=== PATIENT | male | born 1965 | race Caucasian/White ===

== ENCOUNTER 2022-08-11 01:56 | Inpatient (IN) | payer MEDICAID ==
[~2022-08-11] VITALS: Ht 172.7 cm; Wt 117.9 kg
[2022-08-11 03:52] LABS: CHLORIDE 100 mEq/L (98-107)
[2022-08-11 03:54] LABS: BASOPHILS % 0.5 % (0.0-2.0); EOSINOPHILS % 0.1 % (0.0-5.0); HEMATOCRIT. 44.7 % (42.0-52.0); HEMOGLOBIN. 15.1 g/dL (14.0-18.0); MEAN CORPUSCULAR HEMOGLOBIN 30.3 pg (28.0-32.0); MEAN CORPUSCULAR VOLUME 89.6 fL (80.0-94.0); MEAN PLATELET VOLUME 9.5 fl (7.4-10.4); MONOCYTES % 6.2 % (2.0-8.0); NEUTROPHILS % 74.2 % (40.0-76.0); PLATELET 228 x1000/uL (130-400); PROTHROMBIN TIME 10.9 sec (9.6-11.0); RED BLOOD CELL COUNT 4.99 mill/uL (4.7-6.1); RED CELL DISTRIBUTION WIDTH 13.4 % (11.6-14.6)
[2022-08-11] MEDS ORDERED: SODIUM CHLORIDE 0.9% 1,000 ML IV ONE (04:15)
[2022-08-11] MEDS ORDERED: MORPHINE SULFATE 4 MG/ML CPJ (NOT FOR IM USE) IV ONE (04:15)
[2022-08-11 10:00] VITALS: BP 180/99
[2022-08-11] MEDS ORDERED: ONDANSETRON HCL 4MG/2ML INJ IV PRN (10:15)
[2022-08-11] MEDS ORDERED: MORPHINE SULFATE 4 MG/ML CPJ (NOT FOR IM USE) IV PRN (10:15)
[2022-08-11] MEDS ORDERED: DEXTROSE 50% WATER 50ML SYRINGE IV PRN (10:15)
[2022-08-11] MEDS ORDERED: CLONIDINE 0.1MG TABLET PO PRN (10:15)
[2022-08-11] MEDS ORDERED: DIPHENHYDRAMINE 50MG/ML VIAL IV PRN (10:15)
[2022-08-11] MEDS ORDERED: NALOXONE HCL 0.4MG/ML VIAL IV PRN ×2 (10:30)
[2022-08-11] MEDS ORDERED: SODIUM CHLORIDE 0.9% 1,000 ML IV SCH (10:30)
[2022-08-11] MEDS: PANTOPRAZOLE SODIUM 40 MG/VIAL IV SCH (12:03)
[2022-08-11] MEDS: BLOOD SUGAR DIAGNOSTIC STRIP TEST SCH ×3 (12:20→21:40)
[2022-08-11] MEDS ORDERED: MORPHINE SULFATE 4 MG/ML CPJ (NOT FOR IM USE) IV NR (13:45)
[2022-08-11] MEDS: LISINOPRIL 20MG TABLET PO SCH ×2 (13:59→21:40)
[2022-08-11] MEDS: INSULIN LISPRO 100 UNITS/ML SUBCUT SCH ×3 (14:07→21:47)
[2022-08-11] MEDS: SODIUM CHLORIDE 0.9% 1,000 ML IV SCH (14:36)
[2022-08-11] MEDS ORDERED: CLONIDINE 0.2MG TABLET PO PRN (14:45)
[2022-08-11 16:00] VITALS: BP 178/92
[2022-08-11] MEDS: MORPHINE SULFATE 4 MG/ML CPJ (NOT FOR IM USE) IV PRN ×2 (17:24→21:40)
[2022-08-11] MEDS: ENOXAPARIN 30MG/0.3ML SYR SUBCUT SCH (18:00)
[2022-08-11 20:00] VITALS: BP_SYST 106; BP_SYST 166; BP_DIAS 73; BP_DIAS 94
[2022-08-12] VITALS: BP 156/86
[2022-08-12 04:00] VITALS: BP 167/85
[2022-08-12] MEDS: ENOXAPARIN 30MG/0.3ML SYR SUBCUT SCH ×2 (05:58→18:00)
[2022-08-12] MEDS ORDERED: VANCOMYCIN HCL 1 GM/VIAL ONE ×2 (06:22→09:07)
[2022-08-12] MEDS ORDERED: BUPIVACAINE HCL/PF 0.5% (5MG/ML) 30ML ONE (06:22)
[2022-08-12] MEDS: BLOOD SUGAR DIAGNOSTIC STRIP TEST SCH ×4 (06:24→21:00)
[2022-08-12] MEDS ORDERED: BUPIVACAINE HCL/PF 0.5% (5MG/ML) 10ML ONE (06:43)
[2022-08-12 06:44] LABS: BASOPHILS % 0.4 % (0.0-2.0); EOSINOPHILS % 0.4 % (0.0-5.0); HEMATOCRIT. 38.7 % (42.0-52.0); HEMOGLOBIN. 13.5 g/dL (14.0-18.0); LYMPHOCYTES % 21.3 % (20.0-50.0); MEAN CORPUSCULAR HEMOGLOBIN 31.2 pg (28.0-32.0); MEAN CORPUSCULAR VOLUME 89.3 fL (80.0-94.0); MEAN PLATELET VOLUME 9.8 fl (7.4-10.4); NEUTROPHILS % 68.9 % (40.0-76.0); PLATELET 163 x1000/uL (130-400); RED BLOOD CELL COUNT 4.33 mill/uL (4.7-6.1); RED CELL DISTRIBUTION WIDTH 13.2 % (11.6-14.6)
[2022-08-12 07:18] LABS: CHLORIDE 104 mEq/L (98-107)
[2022-08-12] MEDS ORDERED: PROPOFOL 200MG/20ML VIAL IV ONE (07:22)
[2022-08-12] MEDS ORDERED: LIDOCAINE 2% 6ML GLYDO MM ONE (07:23)
[2022-08-12] MEDS ORDERED: CEFAZOLIN SODIUM 1000MG/VIAL ONE (07:23)
[2022-08-12] MEDS ORDERED: SUCCINYLCHOLINE CHLORIDE 200MG/10ML IV ONE (07:23)
[2022-08-12 07:24] LABS: HEPATITIS B SURFACE ANTIGEN NEGATIVE
[2022-08-12] MEDS ORDERED: LIDOCAINE HCL 1% 20ML VIAL (Pyxis) INJ ONE (07:26)
[2022-08-12] MEDS ORDERED: MIDAZOLAM HCL 2 MG/2 ML VIAL ONE (07:28)
[2022-08-12] MEDS ORDERED: FENTANYL CITRATE/PF 50MCG/ML 2ML VIAL ONE (07:32)
[2022-08-12] MEDS ORDERED: HYDROMORPHONE HCL/PF 2MG/ML CPJ IV PRN (07:45)
[2022-08-12] MEDS ORDERED: FENTANYL CITRATE/PF 50MCG/ML 2ML VIAL IV PRN (07:45)
[2022-08-12] MEDS ORDERED: HYDROMORPHONE HCL/PF 2MG/ML CPJ ONE (07:58)
[2022-08-12 08:00] VITALS: BP 102/59
[2022-08-12] MEDS: PANTOPRAZOLE SODIUM 40 MG/VIAL IV SCH (09:00)
[2022-08-12] MEDS: LISINOPRIL 20MG TABLET PO SCH ×2 (09:00→20:49)
[2022-08-12] MEDS ORDERED: ALBUMIN HUMAN 12.5G/250ML (5%) IV NR (09:50)
[2022-08-12] MEDS: SODIUM CHLORIDE 0.9% 1,000 ML IV SCH (10:36)
[2022-08-12 12:00] VITALS: BP 149/84
[2022-08-12] MEDS: MORPHINE SULFATE 4 MG/ML CPJ (NOT FOR IM USE) IV PRN ×2 (13:47→18:19)
[2022-08-12] MEDS: INSULIN LISPRO 100 UNITS/ML SUBCUT SCH ×3 (15:12→21:11)
[2022-08-12 16:01] VITALS: BP 146/82
[2022-08-12] MEDS: CEFAZOLIN 2,000 MG in DEXT 5% WATER 100 ML IV SCH (18:10)
[2022-08-12 20:00] VITALS: BP 127/67
[2022-08-13] VITALS: BP 107/54
[2022-08-13] MEDS: MORPHINE SULFATE 4 MG/ML CPJ (NOT FOR IM USE) IV PRN ×3 (00:04→17:21)
[2022-08-13] MEDS: CEFAZOLIN 2,000 MG in DEXT 5% WATER 100 ML IV SCH ×3 (01:18→17:13)
[2022-08-13 04:00] VITALS: BP 164/71
[2022-08-13] MEDS: ENOXAPARIN 30MG/0.3ML SYR SUBCUT SCH ×2 (05:35→17:15)
[2022-08-13] MEDS: SODIUM CHLORIDE 0.9% 1,000 ML IV SCH (05:36)
[2022-08-13] MEDS: BLOOD SUGAR DIAGNOSTIC STRIP TEST SCH ×4 (07:12→21:00)
[2022-08-13 08:00] VITALS: BP 108/57
[2022-08-13] MEDS: PANTOPRAZOLE SODIUM 40 MG/VIAL IV SCH (08:19)
[2022-08-13] MEDS: LISINOPRIL 20MG TABLET PO SCH ×2 (09:00→22:04)
[2022-08-13] MEDS ORDERED: MAGNESIUM/ALUMINUM HYDROXIDE/SIMETHICONE 30ML UDC PO PRN (10:45)
[2022-08-13] MEDS ORDERED: MAGNESIUM HYDROXIDE 400MG/5ML 30ML UDC PO PRN (10:45)
[2022-08-13] MEDS ORDERED: NALOXONE HCL 0.4MG/ML VIAL IV PRN (11:15)
[2022-08-13] MEDS: HYDROCODONE/ACETAMINOPHEN 10/325MG TABLET PO PRN (11:16)
[2022-08-13 12:00] VITALS: BP 163/61
[2022-08-13] MEDS: INSULIN LISPRO 100 UNITS/ML SUBCUT SCH ×3 (12:50→22:07)
[2022-08-13] MEDS: METFORMIN HCL 500MG TABLET PO SCH ×2 (13:21→17:13)
[2022-08-13] MEDS: DOCUSATE SODIUM 100MG CAPSULE PO SCH ×2 (13:22→17:13)
[2022-08-13] MEDS: PANTOPRAZOLE 40MG DR TABLET PO SCH ×2 (13:22→22:03)
[2022-08-13 16:00] VITALS: BP 127/61
[2022-08-13 20:00] VITALS: BP 145/70
[2022-08-13] MEDS ORDERED: SENNOSIDES 8.6MG TABLET PO PRN (21:00)
[2022-08-13] MEDS ORDERED: INSULIN GLARGINE 100 UNITS/ML SUBCUT SCH (22:00)
[2022-08-14] VITALS: BP 136/72
[2022-08-14] MEDS: MORPHINE SULFATE 4 MG/ML CPJ (NOT FOR IM USE) IV PRN ×4 (01:05→21:43)
[2022-08-14] MEDS: CEFAZOLIN 2,000 MG in DEXT 5% WATER 100 ML IV SCH ×3 (01:06→17:49)
[2022-08-14 04:00] VITALS: BP 154/84
[2022-08-14] MEDS: ENOXAPARIN 30MG/0.3ML SYR SUBCUT SCH ×2 (06:28→17:49)
[2022-08-14] MEDS: PANTOPRAZOLE 40MG DR TABLET PO SCH ×2 (06:28→21:20)
[2022-08-14 06:55] LABS: BASOPHILS % 0.5 % (0.0-2.0); EOSINOPHILS % 0.3 % (0.0-5.0); HEMATOCRIT. 28.7 % (42.0-52.0); HEMOGLOBIN. 9.9 g/dL (14.0-18.0); LYMPHOCYTES % 15.5 % (20.0-50.0); MEAN CORPUSCULAR HEMOGLOBIN 31.6 pg (28.0-32.0); MEAN CORPUSCULAR VOLUME 91.3 fL (80.0-94.0); MEAN PLATELET VOLUME 9.2 fl (7.4-10.4); MONOCYTES % 9.7 % (2.0-8.0); PLATELET 152 x1000/uL (130-400); RED BLOOD CELL COUNT 3.14 mill/uL (4.7-6.1)
[2022-08-14 07:33] LABS: CHLORIDE 107 mEq/L (98-107)
[2022-08-14 08:00] VITALS: BP 165/69
[2022-08-14] MEDS: BLOOD SUGAR DIAGNOSTIC STRIP TEST SCH ×4 (08:11→21:00)
[2022-08-14] MEDS: LISINOPRIL 20MG TABLET PO SCH ×2 (08:29→21:20)
[2022-08-14] MEDS: DOCUSATE SODIUM 100MG CAPSULE PO SCH ×2 (08:30→17:49)
[2022-08-14] MEDS: INSULIN LISPRO 100 UNITS/ML SUBCUT SCH ×4 (08:32→21:26)
[2022-08-14] MEDS: METFORMIN HCL 500MG TABLET PO SCH ×2 (08:35→17:49)
[2022-08-14] MEDS: HYDROCODONE/ACETAMINOPHEN 10/325MG TABLET PO PRN ×3 (08:36→17:55)
[2022-08-14 12:00] VITALS: BP 149/81
[2022-08-14] MEDS: SENNOSIDES 8.6MG TABLET PO SCH ×3 (14:30→21:20)
[2022-08-14] MEDS ORDERED: LACTULOSE 20G/30ML UDC PO PRN (14:30)
[2022-08-14 16:00] VITALS: BP 164/73
[2022-08-14 20:00] VITALS: BP 130/72
[2022-08-14] MEDS: AMLODIPINE 5MG TABLET PO SCH (21:21)
[2022-08-14] MEDS: INSULIN GLARGINE 100 UNITS/ML SUBCUT SCH (21:25)
[2022-08-15] VITALS: BP 155/73
[2022-08-15 04:00] VITALS: BP 140/71
[2022-08-15] MEDS: HYDROCODONE/ACETAMINOPHEN 10/325MG TABLET PO PRN ×4 (04:33→23:06)
[2022-08-15] MEDS: ENOXAPARIN 30MG/0.3ML SYR SUBCUT SCH ×2 (06:36→18:00)
[2022-08-15] MEDS: PANTOPRAZOLE 40MG DR TABLET PO SCH ×2 (06:36→21:41)
[2022-08-15] MEDS: BLOOD SUGAR DIAGNOSTIC STRIP TEST SCH ×4 (06:36→21:00)
[2022-08-15] MEDS: INSULIN LISPRO 100 UNITS/ML SUBCUT SCH ×4 (07:01→21:43)
[2022-08-15 08:00] VITALS: BP 141/78
[2022-08-15] MEDS: METFORMIN HCL 500MG TABLET PO SCH ×2 (09:25→17:50)
[2022-08-15] MEDS: DOCUSATE SODIUM 100MG CAPSULE PO SCH ×2 (09:25→17:00)
[2022-08-15] MEDS: AMLODIPINE 5MG TABLET PO SCH ×2 (09:26→21:42)
[2022-08-15] MEDS: LISINOPRIL 20MG TABLET PO SCH ×2 (09:26→21:41)
[2022-08-15] MEDS: MORPHINE SULFATE 4 MG/ML CPJ (NOT FOR IM USE) IV PRN (09:37)
[2022-08-15 12:00] VITALS: BP 139/79
[2022-08-15 16:00] VITALS: BP 151/74
[2022-08-15 20:00] VITALS: BP 131/71
[2022-08-15] MEDS: SENNOSIDES 8.6MG TABLET PO SCH (21:00)
[2022-08-15] MEDS: INSULIN GLARGINE 100 UNITS/ML SUBCUT SCH (21:44)
[2022-08-16 04:00] VITALS: BP 169/94
[2022-08-16] MEDS: ENOXAPARIN 30MG/0.3ML SYR SUBCUT SCH ×2 (06:00→19:41)
[2022-08-16] MEDS: MORPHINE SULFATE 4 MG/ML CPJ (NOT FOR IM USE) IV PRN (06:12)
[2022-08-16 07:15] LABS: HEMATOCRIT 27.6 % (42.0-52.0); HEMOGLOBIN 9.7 g/dL (14.0-18.0); MEAN CORPUSCULAR HEMOGLOBIN 31.7 pg (28.0-32.0); MEAN CORPUSCULAR VOLUME 90.6 fL (80.0-94.0); PLATELET 193 x1000/uL (130-400); RED BLOOD CELL COUNT 3.05 mill/uL (4.7-6.1); RED CELL DISTRIBUTION WIDTH 12.8 % (11.6-14.6)
[2022-08-16] MEDS: BLOOD SUGAR DIAGNOSTIC STRIP TEST SCH ×4 (07:58→21:05)
[2022-08-16 08:00] VITALS: BP 146/77
[2022-08-16] MEDS: PANTOPRAZOLE 40MG DR TABLET PO SCH ×2 (08:43→20:18)
[2022-08-16] MEDS: METFORMIN HCL 500MG TABLET PO SCH ×2 (08:43→19:40)
[2022-08-16] MEDS: LISINOPRIL 20MG TABLET PO SCH ×2 (08:44→20:18)
[2022-08-16] MEDS: HYDROCODONE/ACETAMINOPHEN 10/325MG TABLET PO PRN ×2 (08:45→16:54)
[2022-08-16] MEDS: INSULIN LISPRO 100 UNITS/ML SUBCUT SCH ×4 (08:50→21:04)
[2022-08-16] MEDS: DOCUSATE SODIUM 100MG CAPSULE PO SCH ×2 (09:00→17:00)
[2022-08-16] MEDS ORDERED: OXYCODONE HCL/ACETAMINOPHEN 5/325MG TABLET PO PRN (09:15)
[2022-08-16 11:57] VITALS: BP 142/83
[2022-08-16] MEDS: AMLODIPINE 5MG TABLET PO SCH ×2 (12:24→20:19)
[2022-08-16 15:50] VITALS: BP 119/64
[2022-08-16 20:00] VITALS: BP 142/77
[2022-08-16] MEDS: SENNOSIDES 8.6MG TABLET PO SCH (20:18)
[2022-08-16] MEDS: INSULIN GLARGINE 100 UNITS/ML SUBCUT SCH (21:05)
[2022-08-17] VITALS: BP 140/76
[2022-08-17] MEDS: HYDROCODONE/ACETAMINOPHEN 10/325MG TABLET PO PRN ×4 (00:30→22:23)
[2022-08-17 04:00] VITALS: BP 142/70
[2022-08-17] MEDS: ENOXAPARIN 30MG/0.3ML SYR SUBCUT SCH ×2 (05:28→18:37)
[2022-08-17] MEDS: PANTOPRAZOLE 40MG DR TABLET PO SCH ×2 (06:35→22:23)
[2022-08-17] MEDS: BLOOD SUGAR DIAGNOSTIC STRIP TEST SCH ×4 (07:20→21:00)
[2022-08-17 08:00] VITALS: BP 119/80
[2022-08-17] MEDS ORDERED: OXYCODONE HCL/ACETAMINOPHEN 5/325MG TABLET PO PRN ×2 (09:30→15:45)
[2022-08-17] MEDS: INSULIN LISPRO 100 UNITS/ML SUBCUT SCH ×4 (11:25→22:20)
[2022-08-17] MEDS: METFORMIN HCL 500MG TABLET PO SCH ×2 (11:26→18:36)
[2022-08-17] MEDS: AMLODIPINE 5MG TABLET PO SCH ×2 (11:27→22:21)
[2022-08-17] MEDS: DOCUSATE SODIUM 100MG CAPSULE PO SCH ×2 (11:27→18:37)
[2022-08-17] MEDS: LISINOPRIL 20MG TABLET PO SCH ×2 (11:27→22:21)
[2022-08-17 12:00] VITALS: BP 168/83
[2022-08-17 16:00] VITALS: BP 156/75
[2022-08-17 20:00] VITALS: BP 156/81
[2022-08-17] MEDS: INSULIN GLARGINE 100 UNITS/ML SUBCUT SCH (22:19)
[2022-08-17] MEDS: SENNOSIDES 8.6MG TABLET PO SCH (22:23)
[2022-08-17] MEDS: GABAPENTIN 100MG CAPSULE PO SCH (22:24)
[2022-08-18] VITALS: BP 145/71
[2022-08-18 04:00] VITALS: BP 151/84
[2022-08-18] MEDS: HYDROCODONE/ACETAMINOPHEN 10/325MG TABLET PO PRN ×4 (04:18→18:37)
[2022-08-18] MEDS: ENOXAPARIN 30MG/0.3ML SYR SUBCUT SCH ×2 (06:29→19:02)
[2022-08-18] MEDS: PANTOPRAZOLE 40MG DR TABLET PO SCH ×2 (06:30→22:09)
[2022-08-18] MEDS: GABAPENTIN 100MG CAPSULE PO SCH ×3 (06:30→22:09)
[2022-08-18] MEDS: BLOOD SUGAR DIAGNOSTIC STRIP TEST SCH ×4 (07:20→21:00)
[2022-08-18 08:00] VITALS: BP 166/82
[2022-08-18] MEDS: METFORMIN HCL 500MG TABLET PO SCH ×2 (09:29→18:38)
[2022-08-18] MEDS: LISINOPRIL 20MG TABLET PO SCH ×2 (09:30→22:09)
[2022-08-18] MEDS: DOCUSATE SODIUM 100MG CAPSULE PO SCH ×2 (09:31→18:36)
[2022-08-18] MEDS: AMLODIPINE 5MG TABLET PO SCH ×2 (09:31→22:10)
[2022-08-18] MEDS: INSULIN LISPRO 100 UNITS/ML SUBCUT SCH ×4 (09:39→22:19)
[2022-08-18 12:00] VITALS: BP 141/78
[2022-08-18 16:00] VITALS: BP 146/81
[2022-08-18 20:00] VITALS: BP 137/72
[2022-08-18] MEDS: SENNOSIDES 8.6MG TABLET PO SCH (22:10)
[2022-08-18] MEDS: INSULIN GLARGINE 100 UNITS/ML SUBCUT SCH (22:20)
[2022-08-19] VITALS: BP 133/74
[2022-08-19] MEDS: HYDROCODONE/ACETAMINOPHEN 10/325MG TABLET PO PRN ×4 (00:10→22:07)
[2022-08-19 04:00] VITALS: BP_SYST 133; BP_SYST 141; BP_DIAS 69; BP_DIAS 81
[2022-08-19] MEDS: PANTOPRAZOLE 40MG DR TABLET PO SCH ×2 (06:44→21:11)
[2022-08-19] MEDS: GABAPENTIN 100MG CAPSULE PO SCH ×3 (06:44→21:11)
[2022-08-19] MEDS: BLOOD SUGAR DIAGNOSTIC STRIP TEST SCH ×4 (06:45→21:20)
[2022-08-19] MEDS: ENOXAPARIN 30MG/0.3ML SYR SUBCUT SCH ×2 (06:45→17:45)
[2022-08-19 07:13] LABS: TOTAL IRON BINDING CAPACITY 253 ug/dL (250-450)
[2022-08-19 07:16] LABS: FERRITIN 55 ng/mL (22-322)
[2022-08-19 07:28] LABS: VITAMIN B12 SERUM 696 pg/mL (211-911)
[2022-08-19 08:00] VITALS: BP 143/72
[2022-08-19] MEDS: DOCUSATE SODIUM 100MG CAPSULE PO SCH ×2 (08:36→17:44)
[2022-08-19] MEDS: METFORMIN HCL 500MG TABLET PO SCH ×2 (08:38→17:51)
[2022-08-19] MEDS: LISINOPRIL 20MG TABLET PO SCH ×2 (08:38→21:11)
[2022-08-19] MEDS: AMLODIPINE 5MG TABLET PO SCH ×2 (08:39→21:11)
[2022-08-19] MEDS: INSULIN LISPRO 100 UNITS/ML SUBCUT SCH ×4 (08:41→21:19)
[2022-08-19 12:26] VITALS: BP 131/63
[2022-08-19] MEDS: IRON SUCROSE COMPLEX 100 MG/5 ML ML IV SCH (13:03)
[2022-08-19] MEDS: FERROUS SULFATE 325MG TABLET PO SCH ×2 (13:15→17:44)
[2022-08-19] MEDS: POLYETHYLENE GLYCOL 3350 (17GM) 1 DOSE PACK PO SCH (13:16)
[2022-08-19] MEDS: ASCORBIC ACID 500 MG TABLET PO SCH (13:16)
[2022-08-19 16:00] VITALS: BP 131/71
[2022-08-19] MEDS: LACTULOSE 20G/30ML UDC PO SCH (17:44)
[2022-08-19 20:00] VITALS: BP 146/78
[2022-08-19] MEDS: SENNOSIDES 8.6MG TABLET PO SCH (21:11)
[2022-08-19] MEDS: INSULIN GLARGINE 100 UNITS/ML SUBCUT SCH (21:19)
[2022-08-20] VITALS: BP 148/78
[2022-08-20 04:00] VITALS: BP 134/73
[2022-08-20] MEDS: HYDROCODONE/ACETAMINOPHEN 10/325MG TABLET PO PRN ×2 (04:31→20:00)
[2022-08-20] MEDS: PANTOPRAZOLE 40MG DR TABLET PO SCH ×2 (06:33→20:51)
[2022-08-20] MEDS: GABAPENTIN 100MG CAPSULE PO SCH ×3 (06:33→22:06)
[2022-08-20] MEDS: ENOXAPARIN 30MG/0.3ML SYR SUBCUT SCH ×2 (06:34→19:56)
[2022-08-20] MEDS: BLOOD SUGAR DIAGNOSTIC STRIP TEST SCH ×4 (06:54→21:46)
[2022-08-20 08:00] VITALS: BP 136/73
[2022-08-20] MEDS: LACTULOSE 20G/30ML UDC PO SCH ×2 (08:40→17:00)
[2022-08-20] MEDS: POLYETHYLENE GLYCOL 3350 (17GM) 1 DOSE PACK PO SCH (08:40)
[2022-08-20] MEDS: AMLODIPINE 5MG TABLET PO SCH ×2 (08:41→20:51)
[2022-08-20] MEDS: METFORMIN HCL 500MG TABLET PO SCH ×2 (08:41→19:54)
[2022-08-20] MEDS: DOCUSATE SODIUM 100MG CAPSULE PO SCH ×2 (08:41→19:54)
[2022-08-20] MEDS: IRON SUCROSE COMPLEX 100 MG/5 ML ML IV SCH (08:42)
[2022-08-20] MEDS: LISINOPRIL 20MG TABLET PO SCH ×2 (08:42→21:45)
[2022-08-20] MEDS: FERROUS SULFATE 325MG TABLET PO SCH ×3 (08:42→19:54)
[2022-08-20] MEDS: ASCORBIC ACID 500 MG TABLET PO SCH (08:47)
[2022-08-20] MEDS: INSULIN LISPRO 100 UNITS/ML SUBCUT SCH ×4 (09:11→22:18)
[2022-08-20 12:00] VITALS: BP 153/81
[2022-08-20 16:00] VITALS: BP 155/75
[2022-08-20 20:00] VITALS: BP 141/71
[2022-08-20] MEDS: SENNOSIDES 8.6MG TABLET PO SCH (20:51)
[2022-08-20] MEDS: INSULIN GLARGINE 100 UNITS/ML SUBCUT SCH (22:17)
[2022-08-21] VITALS: BP 136/79
[2022-08-21 04:00] VITALS: BP 144/73
[2022-08-21] MEDS: ENOXAPARIN 30MG/0.3ML SYR SUBCUT SCH ×2 (05:45→18:04)
[2022-08-21] MEDS: GABAPENTIN 100MG CAPSULE PO SCH ×3 (05:45→21:37)
[2022-08-21 06:51] LABS: HEMATOCRIT 31.4 % (42.0-52.0); HEMOGLOBIN 10.4 g/dL (14.0-18.0); MEAN CORPUSCULAR HEMOGLOBIN 30.6 pg (28.0-32.0); MEAN CORPUSCULAR VOLUME 91.8 fL (80.0-94.0); PLATELET 331 x1000/uL (130-400); RED BLOOD CELL COUNT 3.42 mill/uL (4.7-6.1); RED CELL DISTRIBUTION WIDTH 13.9 % (11.6-14.6)
[2022-08-21] MEDS: BLOOD SUGAR DIAGNOSTIC STRIP TEST SCH ×4 (07:49→21:45)
[2022-08-21] MEDS: INSULIN LISPRO 100 UNITS/ML SUBCUT SCH ×4 (07:49→21:39)
[2022-08-21 08:00] VITALS: BP 147/75
[2022-08-21 08:08] LABS: CHLORIDE 104 mEq/L (98-107)
[2022-08-21] MEDS: HYDROCODONE/ACETAMINOPHEN 10/325MG TABLET PO PRN ×3 (09:18→23:56)
[2022-08-21] MEDS: PANTOPRAZOLE 40MG DR TABLET PO SCH ×2 (09:21→21:36)
[2022-08-21] MEDS: METFORMIN HCL 500MG TABLET PO SCH ×2 (09:21→18:04)
[2022-08-21] MEDS: AMLODIPINE 5MG TABLET PO SCH ×2 (09:21→21:36)
[2022-08-21] MEDS: LISINOPRIL 20MG TABLET PO SCH ×2 (09:22→21:36)
[2022-08-21] MEDS: DOCUSATE SODIUM 100MG CAPSULE PO SCH ×2 (09:22→17:08)
[2022-08-21] MEDS: ASCORBIC ACID 500 MG TABLET PO SCH (09:22)
[2022-08-21] MEDS: LACTULOSE 20G/30ML UDC PO SCH ×2 (09:23→17:00)
[2022-08-21] MEDS: POLYETHYLENE GLYCOL 3350 (17GM) 1 DOSE PACK PO SCH (09:24)
[2022-08-21] MEDS: FERROUS SULFATE 325MG TABLET PO SCH ×3 (09:38→17:08)
[2022-08-21 12:00] VITALS: BP 134/71
[2022-08-21 16:09] VITALS: BP 124/68
[2022-08-21 20:00] VITALS: BP 124/66
[2022-08-21] MEDS: SENNOSIDES 8.6MG TABLET PO SCH (21:00)
[2022-08-21] MEDS: INSULIN GLARGINE 100 UNITS/ML SUBCUT SCH (21:38)
[2022-08-22] VITALS: BP 119/74
[2022-08-22 04:00] VITALS: BP 137/74
[2022-08-22] MEDS: GABAPENTIN 100MG CAPSULE PO SCH ×3 (06:19→21:40)
[2022-08-22] MEDS: PANTOPRAZOLE 40MG DR TABLET PO SCH ×2 (06:22→21:40)
[2022-08-22] MEDS: ENOXAPARIN 30MG/0.3ML SYR SUBCUT SCH ×2 (06:22→17:22)
[2022-08-22] MEDS: BLOOD SUGAR DIAGNOSTIC STRIP TEST SCH ×4 (07:36→21:00)
[2022-08-22] MEDS: INSULIN LISPRO 100 UNITS/ML SUBCUT SCH ×4 (07:37→21:00)
[2022-08-22 08:00] VITALS: BP 145/78
[2022-08-22] MEDS: METFORMIN HCL 500MG TABLET PO SCH ×2 (08:17→17:22)
[2022-08-22] MEDS: FERROUS SULFATE 325MG TABLET PO SCH ×3 (08:17→17:25)
[2022-08-22] MEDS: ASCORBIC ACID 500 MG TABLET PO SCH (08:19)
[2022-08-22] MEDS: POLYETHYLENE GLYCOL 3350 (17GM) 1 DOSE PACK PO SCH (08:19)
[2022-08-22] MEDS: AMLODIPINE 5MG TABLET PO SCH ×2 (08:19→22:10)
[2022-08-22] MEDS: LISINOPRIL 20MG TABLET PO SCH ×2 (08:19→21:41)
[2022-08-22] MEDS: LACTULOSE 20G/30ML UDC PO SCH ×2 (09:00→17:00)
[2022-08-22] MEDS: DOCUSATE SODIUM 100MG CAPSULE PO SCH ×2 (09:00→17:22)
[2022-08-22 12:00] VITALS: BP 147/76
[2022-08-22] MEDS: HYDROCODONE/ACETAMINOPHEN 10/325MG TABLET PO PRN ×2 (14:36→23:45)
[2022-08-22 16:00] VITALS: BP 126/73
[2022-08-22 20:00] VITALS: BP 128/66
[2022-08-22] MEDS: SENNOSIDES 8.6MG TABLET PO SCH (21:41)
[2022-08-22] MEDS: INSULIN GLARGINE 100 UNITS/ML SUBCUT SCH (22:00)
[2022-08-22] MEDS ORDERED: NALOXONE HCL 0.4MG/ML VIAL IV PRN (23:30)
[2022-08-23] VITALS: BP 133/78
[2022-08-23 04:00] VITALS: BP 120/52
[2022-08-23] MEDS: ENOXAPARIN 30MG/0.3ML SYR SUBCUT SCH (06:32)
[2022-08-23] MEDS: GABAPENTIN 100MG CAPSULE PO SCH ×2 (06:32→14:00)
[2022-08-23] MEDS: PANTOPRAZOLE 40MG DR TABLET PO SCH (06:32)
[2022-08-23] MEDS: BLOOD SUGAR DIAGNOSTIC STRIP TEST SCH ×2 (06:33→12:20)
[2022-08-23] MEDS: INSULIN LISPRO 100 UNITS/ML SUBCUT SCH ×2 (07:36→12:50)
[2022-08-23 08:00] VITALS: BP 140/74
[2022-08-23] MEDS: LACTULOSE 20G/30ML UDC PO SCH (09:30)
[2022-08-23] MEDS: POLYETHYLENE GLYCOL 3350 (17GM) 1 DOSE PACK PO SCH (09:30)
[2022-08-23] MEDS: DOCUSATE SODIUM 100MG CAPSULE PO SCH (09:30)
[2022-08-23] MEDS: ASCORBIC ACID 500 MG TABLET PO SCH (09:31)
[2022-08-23] MEDS: HYDROCODONE/ACETAMINOPHEN 10/325MG TABLET PO PRN ×2 (09:31→15:50)
[2022-08-23] MEDS: FERROUS SULFATE 325MG TABLET PO SCH ×2 (09:31→12:50)
[2022-08-23] MEDS: METFORMIN HCL 500MG TABLET PO SCH (09:31)
[2022-08-23] MEDS: AMLODIPINE 5MG TABLET PO SCH (09:31)
[2022-08-23] MEDS: LISINOPRIL 20MG TABLET PO SCH (09:32)
[2022-08-23 11:49] VITALS: BP 18/140
[2022-08-23 12:00] VITALS: BP 132/72
[2022-08-25 19:10] LABS: 25-HYDROXY VITAMIN D3 21 ng/mL (.)
== END 2022-08-23 16:25 | disposition home health service (06) | DRG 308 ==
LOC: ER 01:56 → EDBEDREQ 04:51 → 6EST 05:28 → EDBEDREQ 05:36 → ER 09:35
PROVIDERS: ADMIT Internal Medicine; ATTEND Internal Medicine
PROC: 0QS704Z Reposition Left Upper Femur with Internal Fixation Device, Open Approach (ICD-10-PCS; principal; 2022-08-12)
DX: S72.22XA Displaced subtrochanteric fracture of left femur, initial encounter for closed fracture (principal); E11.42 Type 2 diabetes mellitus with diabetic polyneuropathy; Z68.39 Body mass index [BMI] 39.0-39.9, adult; D50.9 Iron deficiency anemia, unspecified; E66.9 Obesity, unspecified; E11.65 Type 2 diabetes mellitus with hyperglycemia; G89.29 Other chronic pain; Z20.822 Contact with and (suspected) exposure to COVID-19; I10 Essential (primary) hypertension; W01.0XXA Fall on same level from slipping, tripping and stumbling without subsequent striking against object, initial encounter; Z83.3 Family history of diabetes mellitus; Z82.49 Family history of ischemic heart disease and other diseases of the circulatory system; Y93.01 Activity, walking, marching and hiking; Y92.89 Other specified places as the place of occurrence of the external cause; Y99.8 Other external cause status
CPT/HCPCS: 36415; 71045; 73502; 73552; 76000; 80048; 80053; 82306; 82607; 82728; 82746; 82962; 83036; 83540; 83550; 83735; 85025; 85027; 86803; 86850; 86900; 86920; 87340; 87426; 93005; 93970; 93971; 97110; 97163; 97166; 97530; 97535; 99285; C9113; C9803; J0330; J0690; J1170; J1650; J1815; J2250; J2270; J2405; J2704; J3010; J3370; J3490; J7030; J7060; P9041; C1713